=== PATIENT | male | born 1990 | race Two or more races ===

== ENCOUNTER 2017-09-03 14:31 | Emergency (ER) | payer SELFPAY ==
[~2017-09-03] VITALS: Ht 182.9 cm; Wt 81.5 kg
[2017-09-03] MEDS ORDERED: LIDOCAINE-MPF 1%, 5ML ONE (14:57)
[2017-09-03] MEDS ORDERED: SODIUM CHLORIDE FLUSH 10ML SYR IVF ONE (15:00)
[2017-09-03] MEDS ORDERED: LIDOCAINE-MPF 1%, 5ML INFIL ONE (15:00)
[2017-09-03] MEDS ORDERED: AMPICILLIN/SULBACTAM 3 GM in SODIUM CHLORIDE 0.9% 100 ML IVPB ONE (15:00)
[2017-09-03 15:50] VITALS: BP 133/63
== END 2017-09-03 15:52 | disposition home or self-care (01) ==
LOC: ED 15:50
DX: K04.7 Periapical abscess without sinus (principal)
CPT/HCPCS: 41800; 96365; 99284; J0295

== ENCOUNTER 2019-10-22 19:47 | Emergency (ER) | payer OTHER ==
[~2019-10-22] VITALS: Ht 180.3 cm; Wt 92.9 kg
[2019-10-22 19:54] VITALS: BP 122/56
[2019-10-22] MEDS ORDERED: FLUORESCEIN OPHTHALMIC 1 MG STRIP ONE (20:52)
[2019-10-22] MEDS ORDERED: PROPARACAINE OPHTH 0.5%, 15ML ONE (20:52)
== END 2019-10-22 23:06 | disposition home or self-care (01) ==
LOC: ED 21:10
DX: H10.022 Other mucopurulent conjunctivitis, left eye (principal)
CPT/HCPCS: 99283